=== PATIENT | female | born 1935 | race Caucasian/White ===

== ENCOUNTER 2017-09-06 16:29 | Emergency (ER) | payer MEDICARE, BC, SELFPAY ==
[2017-09-06 16:30] VITALS: BP 126/58; PULSE 73; RESP 20; TEMP 37; O2SAT 98; BMI 25.7
--- NOTE | 2017-09-06 18:16 | EKG12_ITS ---
Test Reason : CELLULITIS Blood Pressure : / mmHG Vent. Rate : 054 BPM Atrial Rate : 054 BPM P-R Int : 140 ms QRS Dur : 084 ms QT Int : 432 ms P-R-T Axes : 035 031 028 degrees QTc Int : 409 ms Sinus bradycardia Otherwise normal ECG Confirmed by JOSE JENSEN MD ([id number]), medical transcription editor RAMOS DEAN ([id number]) on 09/15/2017 3:48:12 PM Referred By: LAUREN Confirmed By:JOSE JENSEN MD
[2017-09-06 18:32] LABS: Absolute Lymphocyte Count 1.44 X10^3/ul (0.83-4.51); Absolute Neutrophil Count 3.7 X10^3/uL (2.0-7.7); Basophil# 0.05 X10^3/uL; Basophil% 0.8 % (0-1); Eosinophil# 0.13 X10^3/uL; Eosinophils% 2.2 % (0-5); Hematocrit 38.6 % (37-47); Hemoglobin 12.9 g/dl (12.0-15.0); Lymphocyte # 1.44 X10^3/ul (4.0); Lymphocyte % 24.4 % (19-41); Mean Corp Hgb Conc 33.4 g/gl (32-36); Mean Corpuscular Hgb 29.7 pg (27.0-32.0); Mean Corpuscular Volume 88.7 fL (81-99); Mean Platelet Vol. 9.7 fl (6.2-12.0); Monocyte# 0.61 X10^3/uL; Monocyte% 10.3 % (0-10); Neutrophil # 3.66 X10^3/uL (2.7-7.7); Neutrophil % 62.1 % (47-70); Platelet Count 218 K/mm3 (150-450); RBC Distribution Width CV 12.7 % (11.6-14.6); RBC Distribution Width SD 40.7 fl (35.1-43.9); Red Blood Count 4.35 M/mm3 (4.2-5.4); White Blood Count 5.9 K/mm3 (4.4-11.0)
[2017-09-06 18:34] LABS: POSITIVE COUNT NO; POSITIVE DIFFERENTIAL NO; POSITIVE MORPHOLOGY NO
[2017-09-06 18:42] VITALS: BP 127/70; PULSE 55; RESP 18; O2SAT 98
[2017-09-06 18:47] LABS: D-Dimer Quantitative (DVT/PE) 0.42 FEU/ug/m (0.27-0.49)
[2017-09-06 19:16] LABS: Anion Gap 8 (5-15); BUN 21 mg/dL (7-18); BUN/Creat Ratio 34.5 RATIO (10-20); Calcium,Total 8.6 mg/dL (8.5-10.1); Chloride 106 mmol/L (98-107); Creatinine, Serum 0.61 mg/dL (0.55-1.02); EST Glomerular Filtration Rate 100 mL/min (>60); Est Glom Filt Rate - Afr Amer 121 mL/min (>60); Estimated Creatinine Clearance 38.75 ml/min; Glucose 90 mg/dL (74-106); Potassium 3.6 mmol/L (3.5-5.1); Sodium Level 141 mmol/L (136-145)
--- NOTE | 2017-09-06 20:31 | ED.VISSUMM ---
- ER Visit Summary Date of Service: 09/06/17 Chief Complaint: Right leg swelling History of Present Illness: The patient is a 81 F history of high cholesterol. No history of DVT or PE. Patient states she has had some mild swelling in the right leg and some discomfort for last several days. She denies any redness or fever. No history of DVT or PE. No recent travel, surgery or mobilization. No recent hospitalization. She denies any chest pain or shortness of breath. She states when she elevates her legs is going seems improved. Physical Examination: Ill-appearing older female. Vital signs are stable afebrile. Pulse ox 90% on room air no signs of hypoxia. H EENT exam unremarkable. Neck nontender no JVD. Lungs clear to auscultation bilaterally. Heart regular rate and rhythm no murmur. Rate about 60. Abdomen soft nontender. Normal bowel sounds no peritoneal signs. No pulsatile mass. She is moving all 4 extremities. Neurovascular intact. She is equal symmetrical DP pulse. She has trace edema both lower extremities may be slightly worse in the right than the left. Calves are nontender without cords. Neurologically she is awake and alert without focal deficits. Test Results: CBC normal with a normal white count. Chemistries normal with a normal creatinine and gap. D-dimer is -0.42. EKG sinus bradycardia rate of 54 unchanged from prior EKG from 2008. Emergency Department Course and Treatment: Clinically the patient's leg does not look like cellulitis. I did do a repeat exam around 20 10 PM it was unchanged and actually the swelling vitamin slightly dated. Again no signs of cellulitis. No cords. And she has a strong DP pulse. I discussed all the test results with patient and her family and are comfortable with her being discharged home. Treatment Plan: Elevation. And compression stockings. Disposition: Discharge Impression: Lower leg swelling secondary to venous insufficiency. This note was generated with [employer] dictation software. It may contain incorrect words, spelling, and punctuation that were not noted in review of the chart prior to signing ED Disposition - Plan for ED Patient: Chief Complaint: Cellulitis Referrals: Debra Daly MD [Primary Care Provider] -
[2017-09-06 20:33] VITALS: BP 126/75; PULSE 67; RESP 15; O2SAT 95
--- NOTE | 2017-09-06 20:34 | ED.DEP ---
ED Disposition - Plan for ED Patient: Disposition: Home or Assisted Living Chief Complaint: Cellulitis Instructions: Understanding Chronic Venous Insufficiency Referrals: Debra Daly MD [Primary Care Provider] - 1 Week if not improving Additional Instructions: Elevate your legs to decrease swelling. Compression stockings to decrease leg swelling.
[2017-09-06 20:54] VITALS: BP 126/75; PULSE 67; RESP 15; O2SAT 95
== END 2017-09-06 20:55 | disposition home or self-care (01) ==
PROVIDERS: Emergency Provider Emergency Medicine; Family Provider Internal Medicine; PCP Internal Medicine
DX: I87.2 Venous insufficiency (chronic) (peripheral) (principal); E78.00 Pure hypercholesterolemia, unspecified; Z79.899 Other long term (current) drug therapy
CPT/HCPCS: 80048; 85025; 85379; 93005; 99283; A4216

== ENCOUNTER 2018-07-26 00:44 | Emergency (ER) | payer MEDICARE, BC, SELFPAY ==
[2018-07-26 00:46] VITALS: BP 139/75; PULSE 60; RESP 16; TEMP 36.7; O2SAT 98; BMI 26.4
--- NOTE | 2018-07-26 01:03 | RAD_ITS ---
HISTORY: NKI - patient feels throbbing traveling down posterior leg COMPARISON: None FINDINGS: XR AP pelvis and left hip 3 views Right total hip prosthesis in place. No fracture or dislocation seen. The left hip joint appears preserved. Linear chronic appearing soft tissue calcification at the gluteal tendon region above the left greater trochanter. SI joints appear preserved. Narrowing with chronic subchondral sclerosis of the pubic symphysis. Circular GI reji within the pelvis. RAD/HIP, UNI W/ Pelvis 2-3 Views IMPRESSION: 1. No fracture or acute osseous abnormality. 2. Localized soft tissue calcification at the left greater trochanter region in keeping with greater trochanter syndrome/calcific tendinosis. 3. Right total hip arthroplasty and additional chronic changes, as above. at 0234 Reported and signed by: Jsoe Roman MD Electronically Signed: Jose Roman, at 2:33 EDT Tel , Service support ,
--- NOTE | 2018-07-26 01:04 | ED.VISSUMM ---
- ER Visit Summary Date of Service: 07/26/18 Chief Complaint: Left hip and thigh pain History of Present Illness: The patient is a 82 F who presents with pain in her left hip and posterior thigh that has been getting worse over the past 4 days. Patient went to an urgent care and was given a prescription for prednisone 4 days ago. Patient states this has not been helping. Patient states she was diagnosed with a urinary tract infection at that time as well and has been taking antibiotics for that. Patient states this is improving. Patient states her pain is worse with bending and with sitting. Patient denies any paresthesias or weakness. Patient denies any specific trauma or injury. Physical Examination: Vital signs are stable. Patient is afebrile. Patient is in no acute distress. Musculoskeletal exam reveals tenderness over the posterior aspect of the left hip and thigh. There is no bony crepitance or step-off. There is some pain in the posterior thigh with straight leg raising on the left. There is no radicular pain with this. There is some mild tenderness over the left lumbar paraspinal muscles. There is no calf tenderness or edema. Sensation was intact to light touch bilaterally in the lower extremities. Pedal pulses are equal bilaterally. Test Results: X-rays of the left hip and pelvis were obtained. There is no acute fracture or bony abnormality noted. This was interpreted by the radiologist and reviewed by myself. Emergency Department Course and Treatment: Patient was given an injection of morphine here. Since there is no edema or calf tenderness, I do not feel there is a DVT at this time. Patient felt better on reevaluation. Patient was given a prescription for a short course of [place]. Patient was instructed to use ice to the area. Patient was instructed to follow-up with her primary care physician in 3 to 5 days. Patient was instructed return if worse in any way. Patient understood and was agreeable with the plan. All questions were answered. Disposition: Discharge home Impression: Left hamstring strain This note was generated with [employer] dictation software. It may contain incorrect words, spelling, and punctuation that were not noted in review of the chart prior to signing ED Disposition - Plan for ED Patient: Disposition: Home or Assisted Living Diagnosis: Left hamstring muscle strain Instructions: ED Strain Muscle Ext Prescriptions: Hydrocodone Bitart/Apap 5-325 [[place] 5MG-325MG] 1 tab PO Q6H PRN PRN 3 Days #10 tab PRN Reason: Pain Referrals: Debra Daly MD [Primary Care Provider] - 3-5 Days
[2018-07-26] MEDS: Morphine 4 MG/ML Syringe IM (01:24)
[2018-07-26 03:01] VITALS: BP 130/75; PULSE 70; RESP 16; O2SAT 99
== END 2018-07-26 03:02 | disposition home or self-care (01) ==
PROVIDERS: Emergency Provider Emergency Medicine; Family Provider Internal Medicine; PCP Internal Medicine
DX: S76.312A Strain of muscle, fascia and tendon of the posterior muscle group at thigh level, left thigh, initial encounter (principal); X58.XXXA Exposure to other specified factors, initial encounter; Y93.9 Activity, unspecified; Y92.9 Unspecified place or not applicable; N39.0 Urinary tract infection, site not specified; F32.9 Major depressive disorder, single episode, unspecified; Z79.82 Long term (current) use of aspirin; Z79.899 Other long term (current) drug therapy
CPT/HCPCS: 73502; 96372; 99283

== ENCOUNTER 2022-07-04 19:35 | Emergency (ER) | payer MEDICARE, SELFPAY ==
[2022-07-04 19:36] VITALS: BP 136/63; PULSE 59; RESP 18; TEMP 36.7; O2SAT 97; BMI 27.4
[2022-07-04 20:12] LABS: Absolute Lymphocyte Count 0.72 X10^3/uL (0.83-4.51); Absolute Neutrophil Count 5.5 X10^3/uL (2.0-7.7); Basophil# 0.04 X10^3/uL; Basophil% 0.6 % (0-1); Eosinophil# 0.03 X10^3/uL; Eosinophils% 0.4 % (0-5); Hematocrit 43.6 % (37-47); Hemoglobin 14.4 g/dL (12.0-15.0); Lymphocyte # 0.72 X10^3/ul (0.83-4.51); Lymphocyte % 10.5 % (19-41); Mean Corpuscular Hgb 29.6 pg (27.0-32.0); Mean Corpuscular Volume 89.7 fL (81-99); Mean Platelet Vol. 9.9 fl (6.2-12.0); Monocyte# 0.57 X10^3/uL; Monocyte% 8.3 % (0-10); NRBC Flagged by Analyzer 0 % (0-5); Neutrophil # 5.47 X10^3/uL (2.7-7.7); Neutrophil % 79.8 % (47-70); Platelet Count 268 K/mm3 (150-450); RBC Distribution Width CV 12.6 % (11.6-14.6); RBC Distribution Width SD 41.4 fl (35.1-43.9); Red Blood Count 4.86 M/mm3 (4.2-5.4); White Blood Count 6.9 K/mm3 (4.4-11.0)
[2022-07-04 20:26] LABS: Anion Gap 7 (5-15); BUN 14 mg/dL (7-18); BUN/Creat Ratio 20.7 RATIO (10-20); Calcium,Total 9.8 mg/dL (8.5-10.1); Chloride 104 mmol/L (98-107); Creatinine, Serum 0.68 mg/dL (0.55-1.02); EST Glomerular Filtration Rate 88 mL/min (>60); Est Glom Filt Rate - Afr Amer 107 mL/min (>60); Estimated Creatinine Clearance 32.53 ml/min; Glucose 122 mg/dL (74-106); Potassium 3.2 mmol/L (3.5-5.1); Sodium Level 136 mmol/L (136-145)
--- NOTE | 2022-07-04 21:24 | CT_ITS ---
EXAM: CT ABDOMEN AND PELVIS WITHOUT IV CONTRAST - CT Abdomen And Pelvis W/O Contrast Injection HISTORY: Pain Nausea, vomiting, diarrhea for couple of weeks. TECHNIQUE: Routine protocol CT abdomen and pelvis. IV Contrast: None.. Oral contrast: None. RADIATION DOSAGE (If Supplied By Facility): CTDIvol = ( 9.54 ) mGy, DLP = ( 416.86 ) mGycm Individualized dose optimization techniques were used for this CT. COMPARISON: None. LIMITATIONS: None. FINDINGS: LOWER CHEST: Calcified granuloma left lung base. There is a 3 mm noncalcified nodule in the left lower lobe. Coronary artery calcifications. Large hiatal hernia with nearly the entire stomach in the lower chest, cephalad most extent of which is not included in the scan. LIVER: Grossly unremarkable. GALLBLADDER AND BILIARY TREE: Grossly unremarkable. PANCREAS: Grossly unremarkable. SPLEEN: Small calcifications previous granulomatous process. ADRENAL GLANDS: Grossly unremarkable. KIDNEYS AND URETERS: Right kidney is low lying. No calculi demonstrated. No hydronephrosis. Small low-attenuation structure likely a cyst in the right kidney. PERITONEUM: No free air. No free fluid. BOWEL: Surgical clips in the low abdomen/pelvis. Fluid distended nondilated small bowel in the mid to lower abdomen. No bowel obstruction. APPENDIX: Not identified. VESSELS: Abdominal aorta is normal caliber. REPRODUCTIVE ORGANS: Grossly unremarkable URINARY BLADDER: Grossly unremarkable. ABDOMINAL WALL: Unremarkable. BONES: Surgical hardware right hip. Degenerative changes of the lumbar spine with anterolisthesis at L4-5. CT/Abdomen/Pelvis without Cont IMPRESSION: 1. Fluid-filled distended small bowel nonspecific can be seen with enteritis or ileus. 2. No bowel obstruction. 3. Large hiatal hernia. 4. Incidental 3 mm pulmonary nodule left lower lobe. CT imaging follow-up recommended according to the following findings. *Fleischner Society Recommendations (Radiology 2017, 284:228-243.) (Follow-up and management of solitary nodules smaller than 8 mm detected incidentally at non-screening CT. Newly detected indeterminate nodule in persons 35 years of age or older.) Low risk patient: Minimal or absent history of smoking and of other known risk factors. < 6 mm: No followup needed 6-8mm: Initial Follow-up CT at 6-12 months, then consider CT at 18-24 months >8mm: Consider CT at 3 months, FDG PET scan, or biopsy High risk patient: History of smoking or of other known risk factors. < 6 mm: Optional CT at 12 months. 6-8mm: CT at 6-12 months, then CT at 18-24 months. >8mm: Consider CT at 3 months, FDG PET scan, or biopsy Electronically Signed: Brigette Black MD at 23:03 EDT ,
[2022-07-04] MEDS: Ondansetron 4 MG/2 ML Vial IV (21:50)
[2022-07-04] MEDS: Morphine 4 MG/ML Syringe IV (21:50)
--- NOTE | 2022-07-04 22:20 | EDS_ITS ---
HPI HPI - GI History of Present Illness Chief Complaint: Nausea/Vomiting/Diarrhea Informant: patient and family Abdominal Pain/Flank Pain Onset: Today Context: Gradual Onset Timing: Continuous Quality: Cramping Location: Diffuse Worsened by: Nothing Relieved by: Nothing Nausea/Vomiting/Emesis GI Symptom: Positive for Nausea and Vomiting Onset: Days (2) Quality: Positive for Nonbilious; Negative for Blood streaks, Coffee ground or Hematemesis Diarrhea/Melena/Hematochezia GI Symptom: Positive for Diarrhea; Negative for Melena or Hematochezia Onset: Days (2) Stool Quality: Positive for Watery Associated Symptoms Associated Symptoms: Negative for Dysuria, Frequency or Hematuria Narrative Narrative: Patient presents with nausea, vomiting, diarrhea, and abdominal pain that has been getting worse over the last 2 days. Patient states she is unable to keep anything down. Patient denies any hematemesis or coffee-ground emesis. Patient states her diarrhea is watery. Patient denies any black or maroon stools. Patient denies any bright red bleeding. Patient denies any urinary complaints. Patient states her pain is diffuse across her abdomen. Patient describes it as cramping. Patient states it is constant. Patient states nothing makes it better nothing makes it worse. [facility] Medical History (Updated 07/04/22 @ 23:[address] Ronnie Read, ) History of depression Hyperlipidemia Hypertension Home Medications escitalopram oxalate 10 mg tablet 10 mg PO DAILY 04/27/14 [History Last Taken 01/01/15] simvastatin 20 mg tablet 20 mg PO DAILY 04/27/14 [History Last Taken 01/01/15] tolterodine 4 mg capsule,extended release 24 hr 4 mg PO DAILY 11/19/14 [History Last Taken 01/01/15] hydrochlorothiazide 25 mg tablet 25 mg PO DAILY 09/06/17 [History Last Taken Unknown] aspirin 81 mg tablet,delayed release 81 mg PO DAILY@0800 07/26/18 [History Last Taken Unknown] glucosamine 750 [id number] no.7 644 mg-vit F-ckoysn-xvure tablet (Glucosamine-Chondr Cmplx (boswellia)) 1 ea PO DAILY 07/26/18 [History Last Taken Unknown] ondansetron 4 mg disintegrating tablet 4 mg PO Q8H PRN PRN Nausea #10 tabs 07/04/22 [Rx Last Taken Unknown] Allergy/AdvReac Type Severity Reaction Status Date / Time adhesive Allergy Rash Verified 07/04/22 19:38 shellfish derived Allergy Anaphylaxis Verified 07/04/22 19:38 Sulfa (Sulfonamide Allergy Other Verified 07/04/22 19:38 Antibiotics) Penicillins AdvReac Upset Verified 07/04/22 19:38 Stomach Surgical History (Updated 07/04/22 @ 22:[address] Ronnie Read DO) S/P hip replacement Status post total knee replacement Social History Smoking Status: Former smoker ROS ROS ED Constitutional Constitutional ED: Denies chills or fever(s) Eyes Eyes: Denies blurry vision or change in vision ENT ENT ED: Denies rhinorrhea or sore throat Cardiovascular Cardiovascular: Denies chest pain or palpitations Respiratory/Chest Respiratory/Chest: Reports cough and sputum; Denies dyspnea Gastrointestinal Gastrointestinal: Reports abdominal pain, diarrhea, nausea and vomiting Genitourinary Genitourinary ED: Denies dysuria or hematuria Musculoskeletal Musculoskeletal: Reports back pain; Denies neck pain Integumentary Denies abscess or rash Neurologic Neurologic: Reports headache(s); Denies weakness Allergic/Immunologic Allergic/Immunologic ED: Denies mouth swelling or urticaria EXAM Physical Exam Const Vital Signs: 07/04/22 19:36 Temperature 98.0 F Temperature Source Temporal Pulse Rate 59 L Respiratory Rate 18 Blood Pressure 136/63 H Blood Pressure Mean 87 Pulse Ox 97 Oxygen Delivery Method Room Air Positive well nourished and well developed General Appearance ED: well developed and NAD HEENT Reports moist mucous membranes Neck supple and no JVD Resp normal respiratory effort and clear to auscultation bilaterally Cardio regular rate, regular rhythm and no murmurs GI normal to inspection, nondistended, normoactive bowel sounds Palpation: soft and tender epigastric, LLQ, RLQ, LUQ, RUQ, periumbilical and suprapubic; Negative for guarding or rebound tenderness present Extremity normal to inspection General Extremety ED: Negative for edema or tenderness General Extremity: Negative for edema Neuro oriented x3, CN's II-XII intact bilaterally and no sensory deficits noted Sensorium / Orientation: alert Motor Exam: strength 5/5 throughout Psych mental status grossly normal Skin no rashes or lesions noted MDM MDM MDM Narrative Medical decision making narrative: Differential diagnosis includes gastroenteritis, bowel obstruction, perforation, pancreatitis, cholecystitis, cholelithiasis, urinary tract infection, pyelonephritis, and diverticulitis. CT scan of the abdomen pelvis will be obtained to assess for bowel obstruction, perforation, and diverticulitis. Urinalysis will be obtained to assess for urinary tract infection. CBC will be obtained to assess for leukocytosis and anemia. Comprehensive metabolic profile will be obtained to assess for hepatic function, renal function, and electrolyte abnormality. Lipase will be obtained to assess for pancreatitis. Lab Data Attestation: I reviewed the patient's lab results. Lab results narrative: CBC was reviewed and was within normal limits. Comprehensive metabolic profile was reviewed and was essentially within normal limits. Lipase was reviewed and was minimally elevated at 83. Labs: Laboratory Results - last 24 hr 07/04/22 07/04/22 20:08 20:08 WBC 6.9 RBC 4.86 Hgb 14.4 Hct 43.6 MCV 89.7 MCH 29.6 MCHC 33.0 RDW Std Deviation 41.4 RDW Coeff of Anila 12.6 Plt Count 268 MPV 9.9 Immature Gran % (Auto) 0.400 Neut % (Auto) 79.8 H Lymph % (Auto) 10.5 L [place] % (Auto) 8.3 Eos % (Auto) 0.4 Baso % (Auto) 0.6 Absolute Neuts (auto) 5.5 Absolute Lymphs (auto) 0.72 L Nucleated RBC % 0 Sodium 136 Potassium 3.2 L Chloride 104 Carbon Dioxide 25.0 Anion Gap 7 BUN 14 Creatinine 0.68 Estim Creat Clear Calc 32.53 Est GFR (MDRD) Af Amer 107 Est GFR (MDRD) Non-Af 88 BUN/Creatinine Ratio 20.7 H Glucose 122 H Calcium 9.8 Total Bilirubin 1.00 AST 17 ALT 22 Alkaline Phosphatase 79 Total Protein 7.4 Albumin 3.9 Globulin 3.5 Albumin/Globulin Ratio 1.1 Lipase 83 H Radiography Diagnostic Testing: Clinical Impression(s) from Imaging Studies Abdomen/Pelvis CT 07/04/22 21:24 IMPRESSION: 1. Fluid-filled distended small bowel nonspecific can be seen with enteritis or ileus. 2. No bowel obstruction. 3. Large hiatal hernia. 4. Incidental 3 mm pulmonary nodule left lower lobe. CT imaging follow-up recommended according to the following findings. *Fleischner Society Recommendations (Radiology 2017, 284:228-243.) (Follow-up and management of solitary nodules smaller than 8 mm detected incidentally at non-screening CT. Newly detected indeterminate nodule in persons 35 years of age or older.) Low risk patient: Minimal or absent history of smoking and of other known risk factors. < 6 mm: No followup needed 6-8mm: Initial Follow-up CT at 6-12 months, then consider CT at 18-24 months >8mm: Consider CT at 3 months, FDG PET scan, or biopsy High risk patient: History of smoking or of other known risk factors. < 6 mm: Optional CT at 12 months. 6-8mm: CT at 6-12 months, then CT at 18-24 months. >8mm: Consider CT at 3 months, FDG PET scan, or biopsy Electronically Signed: Brigette Black MD at 23:03 EDT , T scan of the abdomen pelvis was obtained. There is fluid-filled small bowel which can be seen with enteritis or ileus. There is no evidence of obstruction. There is a large hiatal hernia noted. There is an incidental 3 mm pulmonary nodule in the left lower lobe. This was interpreted by the radiologist and was also independently reviewed by myself. Treatment and Re-Evaluation :: Patient was given IV fluids, morphine, and Zofran. Patient was advised of her findings. Patient is feeling better on reevaluation. Patient was given a prescription for Zofran. Patient was instructed to follow-up with her primary care physician in 5 to 7 days. Patient understood and was agreeable with plan. All questions were answered. Discharge Plan Triage Chief Complaint: Nausea/Vomiting/Diarrhea ED Provider: Ronnie Read Dx/Rx/DC Orders Clinical Impression: Nausea, vomiting, and diarrhea, Hypokalemia Instructions: ED Gastroenteritis, Viral (Adult) Prescriptions: New ondansetron [ondansetron] 4 mg tablet,disintegrating 4 mg PO Q8H PRN PRN (Reason: Nausea) Qty: 10 0RF No Action simvastatin 20 MG tablet 20 mg PO DAILY Label Comments: CHOLESTEROL escitalopram oxalate 10 MG tablet 10 mg PO DAILY Label Comments: MOOD/DEPRESSION tolterodine 4 MG capsule,extended release 24hr 4 mg PO DAILY Label Comments: OVERACTIVE BLADDER hydrochlorothiazide 25 MG tablet 25 mg PO DAILY Label Comments: TAKE ONE TABLET BY MOUTH DAILY. hold if sbp is less THAN 120. aspirin 81 MG tablet 81 mg PO DAILY@0800 [id number] [Glucosamine-Chondr (boswellia)] 1 EACH tablet 1 ea PO DAILY Primary Care Provider: Debra Daly Referrals: Debra Daly MD [Primary Care Provider] - 3-5 Days Disposition Disposition: Home, Self Care
[2022-07-04 22:34] LABS: ALB/GLOB Ratio 1.1 RATIO (0.9-2.4); AST(SGOT) 17 U/L (15-37); Alanine Aminotransfer ALT/SGPT 22 U/L (13-56); Albumin, Serum 3.9 g/dL (3.2-5.0); Alkaline Phosphatase 79 U/L (45-117); Globulin 3.5 g/dL (2.2-4.2); Lipase 83 U/L (13-75); Protein, Total 7.4 g/dL (6.4-8.2)
[2022-07-05 01:00] VITALS: BP 124/68; PULSE 64; RESP 18; O2SAT 100
== END 2022-07-05 01:00 | disposition home or self-care (01) ==
PROVIDERS: Emergency Provider Emergency Medicine; PCP Internal Medicine; Visit Provider Emergency Medicine
DX: R11.2 Nausea with vomiting, unspecified (principal); R19.7 Diarrhea, unspecified; E87.6 Hypokalemia; Z87.891 Personal history of nicotine dependence
CPT/HCPCS: 74176; 80053; 83690; 85025; 96374; 96375; 99282; J7030; A4216; J2405

== ENCOUNTER 2023-01-22 16:48 | Emergency (ER) | payer MEDICARE, SELFPAY ==
[2023-01-22 16:49] VITALS: BP 125/54; PULSE 72; RESP 16; TEMP 36.3; O2SAT 99
--- NOTE | 2023-01-22 18:11 | EDS_ITS ---
HPI HPI - Fall History of Present Illness Chief Complaint: Fall Informant: patient Occured/Mechanism Occurred: Today and Yesterday Mechanism/Context: Yes same level fall Pain/Injury Location: Right shoulder and right parietal scalp Pain Location: head and upper extremity Quality of Pain: Sharp and Aching Worsened by: Movement Relieved by: Rest Associated Symptoms Associated Symptoms: Negative for Parasthesias, Weakness, Loss of function, Inability to ambulate, Loss of consciousness or Amnesia Narrative Narrative: Patient presents after a fall that occurred yesterday and again today. Patient states she hit her head when she fell. Patient states she has been feeling dizzy since the initial fall yesterday. Patient states her dizziness is worse with movement. Patient states it is better with rest. Patient also complains of pain in her right shoulder. Patient describes it as sharp and aching. Patient states her headache is mainly over the right parietal area. Patient denies any paresthesias or weakness. Patient denies any loss of consciousness. Patient denies any neck pain. [facility] Medical History History of depression Hyperlipidemia Hypertension Home Medications escitalopram oxalate 10 mg tablet 10 mg PO DAILY 04/27/14 [History Last Taken 01/01/15] simvastatin 20 mg tablet 20 mg PO DAILY 04/27/14 [History Last Taken 01/01/15] tolterodine 4 mg capsule,extended release 24 hr 4 mg PO DAILY 11/19/14 [History Last Taken 01/01/15] hydrochlorothiazide 25 mg tablet 25 mg PO DAILY 09/06/17 [History Last Taken Unknown] aspirin 81 mg tablet,delayed release 81 mg PO DAILY@0800 07/26/18 [History Last Taken Unknown] glucosamine 750 [id number] no.7 644 mg-vit F-[id number] tablet (Glucosamine-Chondr Cmplx (boswellia)) 1 ea PO DAILY 07/26/18 [History Last Edwin en Unknown] ondansetron 4 mg disintegrating tablet 4 mg PO Q8H PRN PRN Nausea #10 tabs 07/04/22 [Rx Last Taken Unknown] Allergy/AdvReac Type Severity Reaction Status Date / Time adhesive Allergy Rash Verified 01/22/23 16:49 shellfish derived Allergy Anaphylaxis Verified 01/22/23 16:49 Sulfa (Sulfonamide Allergy Other Verified 01/22/23 16:49 Antibiotics) Penicillins AdvReac Upset Verified 01/22/23 16:49 Stomach Surgical History S/P hip replacement Status post total knee replacement Social History Smoking Status: Former smoker ROS ROS ED Constitutional Constitutional ED: Denies chills or fever(s) Eyes Eyes: Denies blurry vision or change in vision ENT ENT ED: Reports rhinorrhea; Denies sore throat Cardiovascular Cardiovascular: Denies chest pain or palpitations Respiratory/Chest Respiratory/Chest: Reports dyspnea; Denies cough Gastrointestinal Gastrointestinal: Reports diarrhea and nausea; Denies vomiting Genitourinary Genitourinary ED: Denies dysuria or hematuria Musculoskeletal Musculoskeletal: Reports back pain; Denies neck pain Integumentary Denies abscess or rash Neurologic Neurologic: Reports headache(s); Denies weakness Allergic/Immunologic Allergic/Immunologic ED: Denies mouth swelling or urticaria EXAM Physical Exam Const Vital Signs: 01/22/23 16:49 01/22/23 18:33 01/22/23 20:55 Temperature 97.3 F L Temperature Source Temporal Pulse Rate 72 Pulse Rate [Lying] 65 Pulse Rate [Sitting (for 1 minute prior to obtaining)] 76 Pulse Rate [Standing (for 1 minute prior to obtaining)] 83 Respiratory Rate 16 Respiratory Effort Normal Blood Pressure 125/54 H Blood Pressure [Lying] 149/70 H Blood Pressure [Sitting (for 1 minute prior to obtaining)] 135/67 H Blood Pressure [Standing (for 1 minute prior to obtaining)] 122/66 H Blood Pressure Mean 77 Blood Pressure Mean [Lying] 96 Blood Pressure Mean [Sitting (for 1 minute prior to obtaining)] 89 Blood Pressure Mean [Standing (for 1 minute prior to obtaining)] 84 Pulse Ox 99 Oxygen Delivery Method Room Air Positive well nourished and well developed General Appearance ED: well developed and NAD HEENT HEENT Narrative: There is tenderness over the right parietal scalp. There is no bony crepitance or step-off. There is no ecchymosis noted. Eyes PERRL and EOMs intact bilaterally Neck full ROM and supple Resp normal respiratory effort and clear to auscultation bilaterally Cardio regular rate and regular rhythm GI non-tender and non-distended Palpation: soft Extremity Extremity Narrative: There is tenderness over the right shoulder. There is no deformity noted. Range of motion was limited in all motions of the right shoulder secondary to pa in. Radial pulses are equal bilaterally. Strength is 5/5 bilaterally in the radial, median, and ulnar areas. Sensation was intact to light touch in the radial, median, ulnar, and axillary areas. Neuro oriented x3, CN's II-XII intact bilaterally, moves all extremities, no focal motor deficits and no sensory deficits noted [place] Coma Scale: document GCS findings Spontaneous Obeys Commands Oriented 15 Sensorium / Orientation: alert Motor Exam: strength 5/5 throughout Psych mental status grossly normal and thought process normal MDM MDM MDM Narrative Medical decision making narrative: Differential diagnosis includes intracranial bleeding, stroke, shoulder fracture, dislocation, electrolyte abnormality, dehydration, vertigo, labyrinthitis, and viral illness. CBC will be obtained to assess for leukocytosis. Basic metabolic profile will be obtained to assess for electrolyte abnormality and renal function. CT scan of the brain will be obta ined to assess for intracranial bleeding and stroke. EKG will be obtained to assess for cardiac dysrhythmia and cardiac ischemia. High-sensitivity troponin will be obtained to assess for cardiac ischemia. Lab Data Attestation: I reviewed the patient's lab results. Lab results narrative: CBC was reviewed and was within normal limits. Comprehensive metabolic profile was reviewed and was within normal limits. Urinalysis was reviewed. There is no evidence of urinary tract infection or hematuria. Labs: Laboratory Results - last 24 hr 01/22/23 01/22/23 19:48 20:45 WBC 6.2 RBC 4.42 Hgb 12.8 Hct 39.1 MCV 88.5 MCH 29.0 MCHC 32.7 RDW Std Deviation 40.5 RDW Coeff of Anila 12.4 Plt Count 201 MPV 9.7 Immature Gran % (Auto) 0.500 Neut % (Auto) 77.3 H Lymph % (Auto) 6.3 L [place] % (Auto) 15.1 H Eos % (Auto) 0.2 Baso % (Auto) 0.6 Absolute Neuts (auto) 4.8 Absolute Lymphs (auto) 0.39 L Nucleated RBC % 0 Differential Comment SCANNED Sodium 139 Potassium 3.5 Chloride 104 Carbon Dioxide 29.0 Anion Gap 6 BUN 14 Creatinine 0.68 Estim Creat Clear Calc 31.94 Est GFR (MDRD) Af Amer 105 Est GFR (MDRD) Non-Af 86 BUN/Creatinine Ratio 20.4 H Glucose 107 H Calcium 9.1 Total Bilirubin 0.70 AST 19 ALT 20 Alkaline Phosphatase 77 Troponin I High Sens 13 Total Protein 7.1 Albumin 3.7 Globulin 3.4 Albumin/Globulin Ratio 1.1 Urine Color Yellow Urine Clarity Clear Urine pH 6.0 Ur Specific [place] 1.025 Urine Protein 30 H Urine Glucose (UA) Normal Urine Ketones 150 A* Urine Occult Blood 10 H Urine Nitrite Negative Urine Bilirubin Negative Urine Urobilinogen Normal Ur Leukocyte Esterase 25 H Urine RBC 0 SEEN Urine WBC 0-5 SEEN Ur Squamous Epith Cells 0 SEEN Urine Bacteria 0 SEEN Urine Mucus 2+ Radiography Diagnostic Testing: Clinical Impression(s) from Imaging Studies Brain CT 01/22/23 18:53 IMPRESSION: Normal unenhanced CT scan of the brain. Electronically Signed: Lalo Pitts DO at 20:17 EST , Shoulder X-Ray 01/22/23 19:59 IMPRESSION: Degenerative hypertrophy at the acromioclavicular articulation.. There is elevation of the humerus at the glenohumeral articulation. Rotator cuff injury cannot be excluded. Electronically Signed: Lalo Pitts DO at 21:05 EST , CT scan of the brain was obtained. There is no acute intracranial abnormality. This was interpreted by the radiologist and was also independently reviewed by myself. X-rays of the right shoulder were obtained. There are 3 views. On my independent interpretation, there is no acute fracture or dislocation. There are degenerative changes noted. Radiologist also interpreted the x-rays and agrees. EKG Initial EKG: Attestation: I personally reviewed and interpreted this EKG as follows: Interpretation: Sinus Rhythm (70) and No Acute Injury Pattern Comments: EKG was obtained. On my independent interpretation, it showed a normal sinus rhythm with a rate of 70. SC interval, QRS interval, and QTc intervals were all normal. [place] was normal. There are no acute ST or T wave changes. Prior EKG tracings: available for review Prior: Unchanged (09/06/2017) Treatment and Re-Evaluation Narrative: Patient was given IV fluids. Patient was advised of her findings. Patient was feeling better on reevaluation. Patient wants to go home. Patient was instructed to follow-up with her primary care physician in 5 to 7 days. Patient was instructed to drink plenty of fluids. Patient was instructed to return if worse in any way. Patient understood and was agreeable with the plan. All questions were answered. Discharge Plan Triage Chief Complaint: Fall Other Complaint: Dizziness ED Provider: Ronnie Read Dx/Rx/DC Orders Clinical Impression: Closed head injury, Contusion of right shoulder, initial encounter, Fall Instructions: ED Head Injury (Adult), ED Shoulder Contusion Prescriptions: No Action simvastatin 20 MG tablet 20 mg PO DAILY Patient Comments: CHOLESTEROL escitalopram oxalate 10 MG tablet 10 mg PO DAILY Patient Comments: MOOD/DEPRESSION tolterodine 4 MG capsule,extended release 24hr 4 mg PO DAILY Patient Comments: OVERACTIVE BLADDER hydrochlorothiazide 25 MG tablet 25 mg PO DAILY Patient Comments: TAKE ONE TABLET BY MOUTH DAILY. hold if sbp is less THAN 120. aspirin 81 MG tablet 81 mg PO DAILY@0800 [id number] [Glucosamine-Chondr (boswellia)] 1 EACH tablet 1 ea PO DAILY ondansetron [ondansetron] 4 mg tablet,disintegrating 4 mg PO Q8H PRN PRN (Reason: Nausea) Qty: 10 0RF Primary Care Provider: Debra Daly Referrals: Debra Daly MD [Primary Care Provider] - 3-5 Days Disposition Disposition: Home, Self Care
--- NOTE | 2023-01-22 18:53 | CT_ITS ---
STUDY: CT BRAIN WITHOUT CONTRAST REASON FOR EXAM: Female, 87 years old. Head injury RADIATION DOSAGE (If Supplied By Facility): CTDIvol = ( 44.99 ) mGy, DLP = ( 812.98 ) mGycm TECHNIQUE: Transaxial CT imaging of the brain was performed without administration of intravenous contrast material. Individualized dose optimization techniques were used for this CT. COMPARISON: No relevant priors. FINDINGS: Normal soft tissue structures. Normal calvarium. Normal size ventricles and extra-axial spaces for the patient''s age. Normal white matter tracts of the cerebral hemispheres. Normal basal ganglia and thalami. Normal brainstem. Normal cerebellum. There is no intracranial hemorrhage. There are no findings of an acute ischemic infarction. Normal visualized paranasal sinuses. CT/Brain/Head without Contrast IMPRESSION: Normal unenhanced CT scan of the brain. Electronically Signed: Lalo Pitts DO at 20:17 EST ,
--- NOTE | 2023-01-22 18:54 | EKG12_ITS ---
Test Reason : DIINESS/FALL Blood Pressure : / mmHG Vent. Rate : 070 BPM Atrial Rate : 070 BPM P-R Int : 154 ms QRS Dur : 074 ms QT Int : 374 ms P-R-T Axes : 035 035 054 degrees QTc Int : 403 ms Normal sinus rhythm Normal ECG Confirmed by MIKEY BEGUM, JOSE ([id number]), editor in chief newspaper MAGDALENE SHEEHAN ([id number]) on 01/29/2023 11:48:54 AM Referred By: NATALIE/BERRY Confirmed By:JOSE JENSEN MD
[2023-01-22 19:07] VITALS: BMI 29.0
[2023-01-22 19:53] LABS: Absolute Lymphocyte Count 0.39 X10^3/uL (0.83-4.51); Absolute Neutrophil Count 4.8 X10^3/uL (2.0-7.7); Basophil# 0.04 X10^3/uL; Basophil% 0.6 % (0-1); Eosinophil# 0.01 X10^3/uL; Eosinophils% 0.2 % (0-5); Hematocrit 39.1 % (37-47); Hemoglobin 12.8 g/dL (12.0-15.0); Lymphocyte # 0.39 X10^3/ul (0.83-4.51); Lymphocyte % 6.3 % (19-41); Mean Corp Hgb Conc 32.7 g/dL (32-36); Mean Corpuscular Volume 88.5 fL (81-99); Mean Platelet Vol. 9.7 fl (6.2-12.0); Monocyte# 0.93 X10^3/uL; Monocyte% 15.1 % (0-10); NRBC Flagged by Analyzer 0 % (0-5); Neutrophil # 4.77 X10^3/uL (2.7-7.7); Neutrophil % 77.3 % (47-70); POSITIVE DIFFERENTIAL YES; Platelet Count 201 K/mm3 (150-450); RBC Distribution Width CV 12.4 % (11.6-14.6); RBC Distribution Width SD 40.5 fl (35.1-43.9); Red Blood Count 4.42 M/mm3 (4.2-5.4); White Blood Count 6.2 K/mm3 (4.4-11.0)
[2023-01-22 19:56] LABS: Differential Indicated SCAN CRITERIA MET
--- NOTE | 2023-01-22 19:59 | RAD_ITS ---
INDICATION: Injury/Pain EXAMINATION/TECHNIQUE: X-RAY - RIGHT XR Shoulder 3 VIEWS COMPARISON: FINDINGS: SOFT TISSUES: No soft tissue swelling or gas. No radiopaque foreign body. BONES/JOINTS: Degenerative hypertrophy at the acromioclavicular articulation.. There is elevation of the humerus at the glenohumeral articulation. Rotator cuff injury cannot be excluded. No sclerotic or destructive changes observed. RAD/Shoulder min 2 Views IMPRESSION: Degenerative hypertrophy at the acromioclavicular articulation.. There is elevation of the humerus at the glenohumeral articulation. Rotator cuff injury cannot be excluded. Electronically Signed: Lalo Pitts DO at 21:05 EST Reading Location ID and State: [facility] / [place] Tel [phone], Service support ,
[2023-01-22 20:00] VITALS: RESP 16
[2023-01-22 20:17] LABS: Differential Comment SCANNED
[2023-01-22] MEDS: 0.9% Normal Saline (1000mL) 1,000 ML 1000 ML IV (20:30)
[2023-01-22 20:31] LABS: ALB/GLOB Ratio 1.1 RATIO (0.9-2.4); AST(SGOT) 19 U/L (15-37); Alanine Aminotransfer ALT/SGPT 20 U/L (13-56); Albumin, Serum 3.7 g/dL (3.2-5.0); Alkaline Phosphatase 77 U/L (45-117); Anion Gap 6 (5-15); BUN 14 mg/dL (7-18); BUN/Creat Ratio 20.4 RATIO (10-20); Calcium,Total 9.1 mg/dL (8.5-10.1); Chloride 104 mmol/L (98-107); Creatinine, Serum 0.68 mg/dL (0.55-1.02); EST Glomerular Filtration Rate 86 mL/min (>60); Est Glom Filt Rate - Afr Amer 105 mL/min (>60); Estimated Creatinine Clearance 31.94 ml/min; Globulin 3.4 g/dL (2.2-4.2); Glucose 107 mg/dL (74-106); Potassium 3.5 mmol/L (3.5-5.1); Protein, Total 7.1 g/dL (6.4-8.2); Sodium Level 139 mmol/L (136-145); Troponin-I HS 13 pg/mL (3.0-54.0)
[2023-01-22 20:51] LABS: Bacteria 0 SEEN /hpf (None Seen); Red Blood Cells-Urine 0 SEEN /hpf (0-5); Squamous Epithelial Cells - UA 0 SEEN /hpf (5-10)
[2023-01-22 20:55] VITALS: BP 122/66; BP 135/67; BP 149/70; PULSE 65; PULSE 76; PULSE 83
[2023-01-22 21:04] LABS: Color, Urine Yellow (Yellow); Glucose, Dipstick Normal (Normal); Leukocyte Esterase-Dipstick 25 /ul (Negative); Nitrite-Dipstick Negative (Negative); Occult Blood-Urine 10 /ul (Negative); Protein-Dipstick 30 mg/dl (Negative); Specific Gravity, Urine 1.025 (1.002-1.030); Urine Bilirubin Dipstick Negative (Negative); Urine Clarity Clear (Clear); Urine Urobilinogen Normal (Normal)
[2023-01-22 21:17] LABS: Ketone-Dipstick 150 mg/dl (Negative)
[2023-01-22 21:20] LABS: Mucous, Urine 2+ /hpf (<or=2+); White Blood Cells 0-5 SEEN /hpf (0-5)
[2023-01-22 22:00] VITALS: BP 137/63
== END 2023-01-22 22:44 | disposition home or self-care (01) ==
PROVIDERS: Emergency Provider Emergency Medicine; PCP Internal Medicine; Visit Provider Emergency Medicine
DX: S09.90XA Unspecified injury of head, initial encounter (principal); S40.011A Contusion of right shoulder, initial encounter; W18.30XA Fall on same level, unspecified, initial encounter; Z87.891 Personal history of nicotine dependence
CPT/HCPCS: 70450; 73030; 80053; 81001; 84484; 85025; 93005; 96360; 99284; J7030